=== PATIENT | female | born 1985 | race Caucasian/White ===

== ENCOUNTER 2019-02-25 00:29 | Inpatient (IN) | payer OTHER ==
[~2019-02-25] VITALS: Ht 165.1 cm; Wt 72.7 kg
[2019-02-25 00:59] LABS: Source, Urine Clean Catch
[2019-02-25 01:02] LABS: Bilirubin, Urine Neg (Neg); Blood, Urine 5+ (Neg); Glucose Qualitative, Urine 1+ (Neg); Ketones, Urine Neg (Neg); Leukocyte Esterase, Urine 2+ (Neg); Nitrite, Urine Neg (Neg); Protein, Urine 1+ (Neg); Specific Gravity, Urine 1.025 (1.003-1.022); Urobilinogen, Urine NORM (Normal)
[2019-02-25 01:03] LABS: Appearance, Urine Hazy (Clear); Color, Urine Yellow (P-Yellow)
[2019-02-25 01:11] LABS: Amorphous Light (0-Heavy); Bacteria Many /hpf; Red Blood Cells, Urine 0-2 /hpf (0-2); Squamous Epithelial Cells Many /hpf (Few); White Blood Cells, Urine 50-100 /hpf (0-5)
[2019-02-25] MEDS ORDERED: Verotin-Gr Cap1 EACH PO (08:56)
--- NOTE | 2019-02-25 13:14 | NUR ---
PT DISCHARGE HOME, DISCHARGE INSTRUCTIONS REVIEWED BY PROVIDER, PT VERBALIZED UNDERSTANDING. PROVIDER ORDERED AMBIEN TO BE GIVEN TO PATIENT BEFORE DISCHARGE, PT STATES SHE FEELS SAFE TAKING MEDICATION. IV DC'D.
[2019-02-25] MEDS ORDERED: IRON150C PO (18:49)
[2019-02-26] MEDS ORDERED: IBUP800 PO (14:39)
== END 2019-02-25 12:55 | disposition home or self-care (01) | DRG 833 ==
LOC: OBS 00:29 → BC 00:29 → OBS 08:33 → BC 08:35
PROVIDERS: Nurse Practitioner Obstetrics & Gynecology; ADMIT Advanced Practice Midwife
DX: O62.0 Primary inadequate contractions (principal); Z3A.39 39 weeks gestation of pregnancy
CPT/HCPCS: 59025; 81001; 87086; 96365; 99214; J0696; J7120

== ENCOUNTER 2019-02-25 17:25 | Inpatient (IN) | payer OTHER ==
[~2019-02-25] VITALS: Ht 165.1 cm; Wt 0.2 kg
[~2019-02-25 17:25] MED LIST: Verotin-Gr Cap1 EACH PO
[2019-02-25] MEDS ORDERED: IRON150C PO (18:49)
[2019-02-25 18:59] LABS: BASOPHILS ABSOLUTE AUTO 0.04 K/mm3 (0.00-0.23); BASOPHILS PERCENT AUTO 0 % (0-2); EOSINOPHILS ABSOLUTE AUTO 0.01 K/mm3 (0.00-0.68); EOSINOPHILS PERCENT AUTO 0 % (0-6); Hematocrit 38.6 % (33.0-51.0); Hemoglobin 13.2 g/dL (11.5-16.0); IMMATURE GRAN ABSOLUTE AUTO 0.07 K/mm3 (0.00-0.10); IMMATURE GRAN PERCENT AUTO 0 % (0-1); LYMPHOCYTES ABSOLUTE AUTO 1.72 K/mm3 (0.84-5.20); LYMPHOCYTES PERCENT AUTO 8 % (21-46); MONOCYTES ABSOLUTE AUTO 0.89 K/mm3 (0.16-1.47); MONOCYTES PERCENT AUTO 4 % (4-13); Mean Corpuscular HGB 31.7 pg (26.0-34.0); Mean Corpuscular HGB Conc 34.2 g/dL (31.5-36.5); Mean Corpuscular Volume 93 fL (80-100); Mean Platelet Volume 12.1 fL (9.1-12.4); NEUTROPHILS PERCENT AUTO 87 % (41-73); Platelet Count 198 K/mm3 (150-400); RDW Coefficient Variation 12.6 % (11.7-14.2); RDW Standard Deviation 42.7 fL (35.1-46.3); Red Blood Cell Count 4.17 M/mm3 (3.80-5.20); White Blood Cell Count 20.53 K/mm3 (4.00-11.30)
--- NOTE | 2019-02-25 19:06 | NUR ---
PATIENT ARRIVED AT 1725 UNABLE TO GET ON MONITOR OR DO VE UNTIL 1742 PATIENT VERY SLOW MOVING
--- NOTE | 2019-02-25 21:37 | NUR ---
02/25/19 2130: RT CALLED FOR DELIVERY FOR MECONIUM. PRIOR TO ALL EQUIPMENT AND WARMER WAS CHECKED AND RUNNING CORRECTLY. BABY WAS BORN AT 2130, AND AT ABOUT 20 SEC ON BABY HAD GOOD CRY, GOOD TONE, GOOD HR, AND COLOR WAS GRADUALLY IMPORVING. RT WAS EXCUSED BY ALLEGRA LAUREANO. BABY WAS TRANSITIONING WELL. 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
[2019-02-26 06:09] LABS: Hematocrit 37.9 % (33.0-51.0); Hemoglobin 12.8 g/dL (11.5-16.0); Mean Corpuscular HGB 32.3 pg (26.0-34.0); Mean Corpuscular HGB Conc 33.8 g/dL (31.5-36.5); Mean Platelet Volume 11.9 fL (9.1-12.4); Platelet Count 211 K/mm3 (150-400); RDW Coefficient Variation 12.8 % (11.7-14.2); RDW Standard Deviation 44.7 fL (35.1-46.3); Red Blood Cell Count 3.96 M/mm3 (3.80-5.20)
[2019-02-26 06:11] LABS: Mean Corpuscular Volume 96 fL (80-100)
[2019-02-26] MEDS ORDERED: IBUP800 PO (14:39)
--- NOTE | 2019-02-26 17:58 | NUR ---
PT TO BOARDER. VITALS WNL. MEDICATED WITH IBUPROFEN 800MG. DISCHARGE INSTRUCTIONS GIVEN. NO QUESTIONS OR CONCERNS AT THIS TIME.
--- NOTE | 2019-02-26 18:13 | NUR ---
CONSULT. BABY IS LESS THAN 12 HOURS OLD AND VERY SLEEPY. INSTRUCT/DEMO SELF EBM AND ABLE TO EXPRESS DROPS FAIRLY EASILY, USE OF SHIELD AND WIDENING LATCH ON SHIELD FOR BETTER TRANSFER, POSITIONING BABY TO HELP OBTAIN A DEEPER LATCH. INSTRUCT IN CHANGES TO EXPECT DURING THE FIRST WEEK WITH BABY AND WITH FEEDINGS AND REFERRED TO [facility] AND PAGE 18 OF [facility] FOR PHOTOS AND INFORMATION. MOM IS TIMID IN HANDLING BABY, NERVOUS, BUT IS LOVING AND TRYING. QUESTIONS ANSWERED.
== END 2019-02-26 18:00 | disposition home or self-care (01) | DRG 806 ==
LOC: OBS 17:25 → BC 17:26 → OBS 17:50 → BC 17:51
PROVIDERS: ADMIT Advanced Practice Midwife
PROC: 10E0XZZ Delivery of Products of Conception, External Approach (ICD-10-PCS; principal; 2019-02-25)
PROC: 3E0234Z Introduction of Serum, Toxoid and Vaccine into Muscle, Percutaneous Approach (ICD-10-PCS; 2019-02-25)
PROC: 0HQ9XZZ Repair Perineum Skin, External Approach (ICD-10-PCS; 2019-02-25)
DX: O77.0 Labor and delivery complicated by meconium in amniotic fluid (principal); O36.0930 Maternal care for other rhesus isoimmunization, third trimester, not applicable or unspecified; Z37.0 Single live birth; Z3A.39 39 weeks gestation of pregnancy; Z67.11 Type A blood, Rh negative; O70.0 First degree perineal laceration during delivery
CPT/HCPCS: 36415; 59025; 85025; 85027; 86900; 86901; J1885; J2590; J7120

== ENCOUNTER 2019-05-09 19:52 | Observation (INO) | payer OTHER ==
[~2019-05-09] VITALS: Ht 167.6 cm; Wt 65.7 kg
[~2019-05-09 19:52] MED LIST changes: +IBUP800 PO; +IRON150C PO
[2019-05-09] MEDS ORDERED: CEFD300 PO (20:09)
[2019-05-09 21:22] LABS: BASOPHILS ABSOLUTE AUTO 0.05 K/mm3 (0.00-0.23); BASOPHILS PERCENT AUTO 1 % (0-2); EOSINOPHILS ABSOLUTE AUTO 0.39 K/mm3 (0.00-0.68); EOSINOPHILS PERCENT AUTO 5 % (0-6); Hematocrit 41.1 % (33.0-51.0); Hemoglobin 13.4 g/dL (11.5-16.0); IMMATURE GRAN ABSOLUTE AUTO 0.03 K/mm3 (0.00-0.10); IMMATURE GRAN PERCENT AUTO 0 % (0-1); LYMPHOCYTES PERCENT AUTO 35 % (21-46); MONOCYTES PERCENT AUTO 6 % (4-13); Mean Corpuscular HGB 31.2 pg (26.0-34.0); Mean Corpuscular HGB Conc 32.6 g/dL (31.5-36.5); Mean Corpuscular Volume 96 fL (80-100); Mean Platelet Volume 10.7 fL (9.1-12.4); NEUTROPHILS ABSOLUTE AUTO 4.43 K/mm3 (1.96-9.15); NEUTROPHILS PERCENT AUTO 53 % (41-73); Platelet Count 277 K/mm3 (150-400); RDW Coefficient Variation 11.8 % (11.7-14.2); RDW Standard Deviation 41.1 fL (35.1-46.3); Red Blood Cell Count 4.29 M/mm3 (3.80-5.20)
[2019-05-09 21:42] LABS: Alanine Aminotransfer (ALT/SGP 74 U/L (12-78); Albumin, Blood 3.9 g/dL (3.4-5.0); Albumin/Globulin Ratio 0.8 (0.8-1.8); Alk Phos 109 U/L (50-136); Anion Gap 4 mmol/L (6-16); Aspartate Aminotrans (AST/SGOT 37 U/L (12-37); Bilirubin, Total 0.2 mg/dL (0.1-1.0); Blood Urea Nitrogen 12 mg/dL (8-24); Bun/Creatinine Ratio 15.7 (12.0-20.0); CO2, Blood 30 mmol/L (21-32); Calcium, Blood 9.3 mg/dL (8.5-10.1); Chloride, Blood 105 mmol/L (98-108); Creatinine, Blood 0.76 mg/dL (0.40-1.00); Globulin, Blood 5.1 g/dL (2.2-4.0); Glomerular Filtration Rate >60 (60-); Glucose, Blood 80 mg/dL (70-99); Potassium, Blood 4.4 mmol/L (3.5-5.5); Sodium, Blood 139 mmol/L (136-145)
[2019-05-10] MEDS ORDERED: IBUP400 PO (01:35)
--- NOTE | 2019-05-10 06:26 | NUR ---
SHIFT SUMMARY PT NEW ADMIT THIS AM. AAOX4. NPO. DISCOMFORT CONTROLLED WITH 50mcg FENTANYL X1 THIS AM. NO NAUSEA/EMESIS. ABSCESS TO LEFT BREAST OPEN, DRAINING SCANT SS WITH ABD PAD IN PLACE. IVF PER ORDERS. PT ORIENTED TO ROOM + CALL LIGHT USE. VSS. PT RESTING WELL THIS AM. CALL LIGHT IN REACH + PT USES FOR ASSISTANCE.
--- NOTE | 2019-05-10 13:20 | NUR ---
INTO SDS VIA [facility]. HISTORY AND ALLERGIES REVIEWED. LUNGS CLEAR. NPO STATUS CONFIRMED. PT REPORTS 1/10 LEFT BREAST PAIN. MODERATE AMOUNT OF PURULENT DRAINAGE NOTED TO GOWN.
--- NOTE | 2019-05-10 13:26 | NUR ---
PT TO OR AT APROX [id number]
[2019-05-10] MEDS ORDERED: Norco 5-325 Ta1 EACH PO (17:43)
--- NOTE | 2019-05-10 18:46 | NUR ---
SHIFT SUMMARY PT HAS DONE WELL SINCE RETURNING FROM PACU. OPSITE TO L BREAST C/D/I. PT DENIES PAIN. TOLERATING REGULAR DIET WITH NO C/O N/V.
--- NOTE | 2019-05-10 19:00 | NUR ---
recvd report from previous shift rn baljit, pt sitting up in bed, states pain at 2/10, denies n/v. pt states her is on the way to pick her up soon. pt requests information on how she is going to be able to pump/hand express. This Rn will call [facility] and check orders.
--- NOTE | 2019-05-10 19:40 | NUR ---
this rn contact [facility], spoke with GEORGI Riley. after looking at orders, no orders from surgeon for exactly how to express. after scrutinizing dressing change orders, pt advised to hand express from operative breast tonight, call nurse midwive/OB tomorrow to relay admission and surgical intervention, advise and possibly help organize a diabetes solutions specialist for pt. pt provided with discharge instructions, peripheral IVs removed wnl, pt provided with dressing change material, instructions for changes, discharge instructions and printed materials. pt understand instructions. pt will notify desk when her arrives at the hospital.
--- NOTE | 2019-05-10 19:59 | NUR ---
PT DC'D DISCHARGE INSTRUCTIONS GIVEN + QUSTIONS ANSWERED BY GEORGI ALEMAN. PT DISCHARGED AT 1954 VIA WHEELCHAIR WITH BELONGING BY SIDE. SIGNIFICANT OTHER IS TRANSPORTING HOME VIA PERSONAL VEHICLE. PT AMBULATED TO VEHICLE W/O SUREKHA.
--- NOTE | 2019-05-14 12:15 | NUR ---
05/14/19 1215 Kelly Barrientos VERIFICATIONS: EDIT CHART.
== END 2019-05-10 19:55 | disposition home or self-care (01) ==
LOC: ER 19:52 → SURS 19:53
PROVIDERS: Emergency Medicine; Surgery; ADMIT Surgery
PROC: 0H9U00Z Drainage of Left Breast with Drainage Device, Open Approach (ICD-10-PCS; principal; 2019-05-10 14:30)
DX: O91.12 Abscess of breast associated with the puerperium (principal); F17.210 Nicotine dependence, cigarettes, uncomplicated
CPT/HCPCS: 36415; 76642; 80053; 81025; 85025; 96361; 96365; 96375; 96376; 99284-25; A9270-GY; G0378; J1100; J1885; J2250; J2405; J2543; J2704; J2710; J3010; J7030; J7120

== ENCOUNTER → 2020-08-25 | Outpatient (CLI) | payer OTHER ==
[~2020-08-25] MED LIST changes: +CEFD300 PO; +IBUP400 PO; +Norco 5-325 Ta1 EACH PO
[2020-08-25 18:52] LABS: BASOPHILS ABSOLUTE AUTO 0.03 K/mm3 (0.00-0.23); BASOPHILS PERCENT AUTO 1 % (0-2); EOSINOPHILS ABSOLUTE AUTO 0.07 K/mm3 (0.00-0.68); EOSINOPHILS PERCENT AUTO 1 % (0-6); Hematocrit 35.9 % (33.0-51.0); Hemoglobin 12.6 g/dL (11.5-16.0); IMMATURE GRAN ABSOLUTE AUTO 0.02 K/mm3 (0.00-0.10); IMMATURE GRAN PERCENT AUTO 0 % (0-1); LYMPHOCYTES ABSOLUTE AUTO 1.22 K/mm3 (0.84-5.20); LYMPHOCYTES PERCENT AUTO 20 % (21-46); MONOCYTES ABSOLUTE AUTO 0.55 K/mm3 (0.16-1.47); MONOCYTES PERCENT AUTO 9 % (4-13); Mean Corpuscular HGB 31.3 pg (26.0-34.0); Mean Corpuscular HGB Conc 35.1 g/dL (31.5-36.5); Mean Corpuscular Volume 89 fL (80-100); Mean Platelet Volume 10.5 fL (9.1-12.4); NEUTROPHILS ABSOLUTE AUTO 4.13 K/mm3 (1.96-9.15); NEUTROPHILS PERCENT AUTO 69 % (41-73); Platelet Count 196 K/mm3 (150-400); RDW Coefficient Variation 12.2 % (11.7-14.2); RDW Standard Deviation 40.1 fL (35.1-46.3); Red Blood Cell Count 4.02 M/mm3 (3.80-5.20); White Blood Cell Count 6.02 K/mm3 (4.00-11.30)
[2020-08-25 19:03] LABS: Alanine Aminotransfer (ALT/SGP 31 U/L (12-78); Albumin, Blood 2.8 g/dL (3.4-5.0); Albumin/Globulin Ratio 0.6 (0.8-1.8); Alk Phos 41 U/L (40-126); Anion Gap 10 mmol/L (6-16); Aspartate Aminotrans (AST/SGOT 17 U/L (12-37); Bilirubin, Total 0.2 mg/dL (0.1-1.0); Blood Urea Nitrogen 7 mg/dL (8-24); Bun/Creatinine Ratio 9.7 (12.0-20.0); CO2, Blood 24 mmol/L (21-32); Calcium, Blood 8.7 mg/dL (8.5-10.1); Chloride, Blood 100 mmol/L (98-108); Creatinine, Blood 0.72 mg/dL (0.40-1.00); Globulin, Blood 4.5 g/dL (2.2-4.0); Glomerular Filtration Rate >60 (60-); Glucose, Blood 119 mg/dL (70-99); Potassium, Blood 3.3 mmol/L (3.5-5.5); Sodium, Blood 134 mmol/L (136-145); Total Protein, Blood 7.3 g/dL (6.4-8.2)
== END | disposition home or self-care (01) ==
LOC: LAB EV 18:47 → LAB SHORT 18:47
PROVIDERS: Physician Assistant Medical
DX: A09 Infectious gastroenteritis and colitis, unspecified (principal); Z33.1 Pregnant state, incidental
CPT/HCPCS: 80053; 84702; 85025

== ENCOUNTER → 2020-08-26 | Outpatient (CLI) | payer OTHER ==
[2020-08-26 22:58] LABS: Adenovirus F 40/41 Not Detected (NOT DETECT); Astrovirus Not Detected (NOT DETECT); Campylobacter Sp Not Detected (NOT DETECT); Cryptosporidium Not Detected (NOT DETECT); Cyclospora Cayetanensis Not Detected (NOT DETECT); E. Coli O157 Not Detected (NOT DETECT); Entamoeba Histolytica Not Detected (NOT DETECT); Enteroaggregative E. coli-EAEC Not Detected (NOT DETECT); Enteropathogenic E. coli-EPEC Detected (NOT DETECT); Enterotoxigenic E. coli-ETEC Not Detected (NOT DETECT); Giardia Lamblia Not Detected (NOT DETECT); Norovirus GI/GII Not Detected (NOT DETECT); Plesiomonas Shigelloides Not Detected (NOT DETECT); Rotavirus A Not Detected (NOT DETECT); Salmonella Sp Not Detected (NOT DETECT); Sapovirus Not Detected (NOT DETECT); Shiga Toxin-prod E. coli-STEC Not Detected (NOT DETECT); Shigella/Enteroin E. coli-EIEC Not Detected (NOT DETECT); Vibrio Cholerae Not Detected (NOT DETECT); Vibrio Sp Not Detected (NOT DETECT); Yersinia Enterocolitica Not Detected (NOT DETECT)
== END ==
LOC: LAB EV 10:30 → LAB SHORT 10:30
PROVIDERS: Physician Assistant Medical
DX: A09 Infectious gastroenteritis and colitis, unspecified (principal)
CPT/HCPCS: 0097U

== ENCOUNTER → 2020-09-16 | Outpatient (CLI) | payer OTHER ==
[2020-09-18 16:10] LABS: HPV 16 Negative (Negative); HPV 18 Negative (Negative); HPV OTHER HR TYPES Negative (Negative)
== END | disposition home or self-care (01) ==
LOC: LAB SHORT 16:28 → LAB 16:28
PROVIDERS: Obstetrics & Gynecology
DX: Z34.82 Encounter for supervision of other normal pregnancy, second trimester (principal)
CPT/HCPCS: 87624; G0123

== ENCOUNTER 2021-01-28 23:46 | Inpatient (IN) | payer OTHER ==
[~2021-01-28] VITALS: Ht 167.6 cm; Wt 68.0 kg
[2021-01-29 05:41] LABS: BASOPHILS ABSOLUTE AUTO 0.06 K/mm3 (0.00-0.23); BASOPHILS PERCENT AUTO 0 % (0-2); EOSINOPHILS ABSOLUTE AUTO 0.19 K/mm3 (0.00-0.68); EOSINOPHILS PERCENT AUTO 1 % (0-6); Hemoglobin 13.3 g/dL (11.5-16.0); IMMATURE GRAN ABSOLUTE AUTO 0.06 K/mm3 (0.00-0.10); IMMATURE GRAN PERCENT AUTO 0 % (0-1); LYMPHOCYTES ABSOLUTE AUTO 1.96 K/mm3 (0.84-5.20); LYMPHOCYTES PERCENT AUTO 14 % (21-46); MONOCYTES ABSOLUTE AUTO 0.82 K/mm3 (0.16-1.47); MONOCYTES PERCENT AUTO 6 % (4-13); Mean Corpuscular Volume 92 fL (80-100); Mean Platelet Volume 12.8 fL (9.1-12.4); NEUTROPHILS ABSOLUTE AUTO 11.26 K/mm3 (1.96-9.15); NEUTROPHILS PERCENT AUTO 79 % (41-73); Platelet Count 173 K/mm3 (150-400); RDW Coefficient Variation 12.4 % (11.7-14.2); RDW Standard Deviation 41.4 fL (35.1-46.3); Red Blood Cell Count 4.15 M/mm3 (3.80-5.20); White Blood Cell Count 14.35 K/mm3 (4.00-11.30)
[2021-01-29 06:10] LABS: Influenza A, PCR Negative (NEGATIVE); Influenza B, PCR Negative (NEGATIVE); Resp Syncytial Virus, PCR Negative (NEGATIVE); SARS-Cov-2 (COVID-19) PCR, MMC Negative (NEGATIVE)
[2021-01-30] MEDS ORDERED: IBUP800 (11:53)
== END 2021-01-30 13:20 | disposition home or self-care (01) | DRG 807 ==
LOC: OBS 23:46 → BC 23:48 → OBS 01-29 04:26 → BC 01-29 04:27
PROVIDERS: ADMIT Obstetrics & Gynecology
PROC: 10E0XZZ Delivery of Products of Conception, External Approach (ICD-10-PCS; principal; 2021-01-29)
PROC: 0KQM0ZZ Repair Perineum Muscle, Open Approach (ICD-10-PCS; 2021-01-29)
DX: O69.1XX0 Labor and delivery complicated by cord around neck, with compression, not applicable or unspecified (principal); Z37.0 Single live birth; Z3A.39 39 weeks gestation of pregnancy; O70.1 Second degree perineal laceration during delivery; Z20.822 Contact with and (suspected) exposure to COVID-19; Z87.891 Personal history of nicotine dependence
CPT/HCPCS: 0241U; 36415; 59025; 85025; 85460; 86850; 86900; 86901; 96372; 99213; A9270; J1885; J2590; J2791; J7120

== ENCOUNTER → 2022-03-25 | Outpatient (CLI) | payer OTHER ==
[~2022-03-25] MED LIST changes: +IBUP800
== END | disposition home or self-care (01) ==
LOC: LAB SHORT 17:52 → LAB 17:52
DX: N39.0 Urinary tract infection, site not specified (principal)
CPT/HCPCS: 87086

== ENCOUNTER → 2023-04-04 | Outpatient (CLI) | payer OTHER | END | disposition home or self-care (01) | LOC: LAB SHORT 08:58 → LAB 08:58 | DX: O09.521 Supervision of elderly multigravida, first trimester (principal) | CPT/HCPCS: 87081; 87150 ==

== ENCOUNTER 2023-05-05 14:20 | Inpatient (IN) | payer OTHER ==
[~2023-05-05] VITALS: Ht 167.6 cm; Wt 72.0 kg
[2023-05-05] VITALS (12 sets, daily range): BP systolic 100–130; BP diastolic 52–74
[2023-05-05 20:36] LABS: BASOPHILS ABSOLUTE AUTO 0.05 K/mm3 (0.00-0.23); BASOPHILS PERCENT AUTO 0 % (0-2); EOSINOPHILS ABSOLUTE AUTO 0.03 K/mm3 (0.00-0.68); EOSINOPHILS PERCENT AUTO 0 % (0-6); Hematocrit 37.4 % (33.0-51.0); Hemoglobin 12.9 g/dL (11.5-16.0); IMMATURE GRAN ABSOLUTE AUTO 0.06 K/mm3 (0.00-0.10); IMMATURE GRAN PERCENT AUTO 0 % (0-1); LYMPHOCYTES ABSOLUTE AUTO 1.71 K/mm3 (0.84-5.20); LYMPHOCYTES PERCENT AUTO 10 % (21-46); MONOCYTES PERCENT AUTO 5 % (4-13); Mean Corpuscular HGB 31.8 pg (26.0-34.0); Mean Corpuscular HGB Conc 34.5 g/dL (31.5-36.5); Mean Corpuscular Volume 92 fL (80-100); Mean Platelet Volume 11.9 fL (9.1-12.4); NEUTROPHILS ABSOLUTE AUTO 13.92 K/mm3 (1.96-9.15); NEUTROPHILS PERCENT AUTO 83 % (41-73); Platelet Count 196 K/mm3 (150-400); RDW Coefficient Variation 12.7 % (11.7-14.2); RDW Standard Deviation 42.7 fL (35.1-46.3); Red Blood Cell Count 4.06 M/mm3 (3.80-5.20); White Blood Cell Count 16.67 K/mm3 (4.00-11.30)
[2023-05-06 00:10] VITALS: BP 105/58
[2023-05-06 03:12] VITALS: BP 101/56
[2023-05-06 07:41] VITALS: BP 105/58
[2023-05-06 11:08] VITALS: BP 101/59
[2023-05-06 15:03] VITALS: BP 111/62
--- NOTE | 2023-05-06 15:06 | NUR ---
DISCHARGE INSTRUCTIONS SIGNED, QUESTIONS ANSWERED. BANDS MATCHED. PT TO DISCHARGE TO HOME WITH INFANT AND .
== END 2023-05-06 15:25 | disposition home or self-care (01) | DRG 807 ==
LOC: OBS 14:20 → BC 14:25
PROVIDERS: ADMIT Obstetrics & Gynecology
PROC: 10E0XZZ Delivery of Products of Conception, External Approach (ICD-10-PCS; principal; 2023-05-05)
PROC: 0KQM0ZZ Repair Perineum Muscle, Open Approach (ICD-10-PCS; 2023-05-05)
PROC: 3E033VJ Introduction of Other Hormone into Peripheral Vein, Percutaneous Approach (ICD-10-PCS; 2023-05-05)
DX: O62.3 Precipitate labor (principal); Z37.0 Single live birth; O70.1 Second degree perineal laceration during delivery; O77.0 Labor and delivery complicated by meconium in amniotic fluid; O69.81X0 Labor and delivery complicated by cord around neck, without compression, not applicable or unspecified; O48.0 Post-term pregnancy; Z87.891 Personal history of nicotine dependence; Z3A.40 40 weeks gestation of pregnancy; Z98.890 Other specified postprocedural states; Z79.82 Long term (current) use of aspirin; Z79.899 Other long term (current) drug therapy; Z67.11 Type A blood, Rh negative; O26.893 Other specified pregnancy related conditions, third trimester
CPT/HCPCS: 36415; 85025; 86850; 86900; 86901; A9270; J2590

== ENCOUNTER → 2024-07-11 | Outpatient (CLI) | payer OTHER ==
[2024-07-11 14:39] LABS: Bacterial Vaginosis PCR Negative (NEGATIVE); Candida Group, PCR NOT DETECTED (NOT DETECT); Candida glabrata-krusei, PCR NOT DETECTED (NOT DETECT)
== END | disposition home or self-care (01) ==
LOC: LAB 11:21 → LAB SHORT 11:21
PROVIDERS: Obstetrics & Gynecology
DX: N76.0 Acute vaginitis (principal)
CPT/HCPCS: 87481; 87661; 87801